=== PATIENT | male | born 1955 | race Two or more races ===

== ENCOUNTER 2018-01-10 08:16 | Emergency (ER) | payer OTHER ==
[~2018-01-10] VITALS: Ht 162.6 cm; Wt 63.8 kg
[~2018-01-10 08:16] MED LIST: CEPH-571 PO; HYDR-569 PO
[2018-01-10 09:59] VITALS: BP 126/76
== END 2018-01-10 10:02 | disposition home or self-care (01) ==
LOC: ER 08:16
DX: S61.011D Laceration without foreign body of right thumb without damage to nail, subsequent encounter (principal); Z79.899 Other long term (current) drug therapy; W23.0XXD Caught, crushed, jammed, or pinched between moving objects, subsequent encounter
CPT/HCPCS: 99284